=== PATIENT | female | born 1960 | race Two or more races ===

== ENCOUNTER 2023-09-06 21:08 | Emergency (ER) | payer OTHER ==
[~2023-09-06] VITALS: Ht 160 cm; Wt 71.7 kg
[2023-09-06 21:43] LABS: Basophils # (auto) 0.1 10 ^3/uL (0-0.2); Basophils % (auto) 0.9 % (0.0-2.0); Eosinophils # (auto) 0.2 10 ^3/uL (0-0.8); Hematocrit 45.1 % (36.0-46.0); Hemoglobin 15.2 g/dL (12.2-16.2); Lymphocytes # (auto) 3.3 10 ^3/uL (0.4-5.4); Lymphocytes % (auto) 39.9 % (10.0-50.0); Mean Corpuscular Hemoglobin 31.8 pg (28.0-32.0); Mean Corpuscular Hgb Conc. 33.8 g/dL (32.0-36.0); Mean Corpuscular Volume 94.2 fL (80.0-100.0); Monocytes # (auto) 0.9 10 ^3/uL (0-1.3); Monocytes % (auto) 10.8 % (0.0-12.0); Neutrophils # (auto) 3.8 10 ^3/uL (1.6-8.6); Neutrophils % (auto) 46.4 % (37.0-80.0); Red Blood Cells 4.79 10^6/uL (4.0-5.20); Red Cell Distribution Width 13.1 % (11.8-14.3); White Blood Cell 8.2 10^3/uL (4.4-10.8)
[2023-09-06 22:01] LABS: Alanine Aminotransferase 42 U/L (7-40); Albumin 4.8 g/dL (3.2-4.8); Alkaline Phosphatase 146 U/L (46-116); Anion Gap 7 (5-15); Aspartate Aminotransferase 30 U/L (13-40); BUN/Creatinine Ratio 13.6 (10.0-20.0); Blood Urea Nitrogen 12 mg/dL (9-23); Calcium 9.7 mg/dL (8.7-10.4); Carbon Dioxide 29 mmol/L (20-30); Chloride 106 mmol/L (98-107); Glucose 189 mg/dL (74-106); Magnesium 2.4 mg/dL (1.6-2.6); Potassium 3.7 mmol/L (3.5-5.1); Sodium 142 mmol/L (136-145)
[2023-09-06 22:02] LABS: Bilirubin, Total 0.7 mg/dL (0.2-1.0); Total Protein 7.8 g/dL (5.7-8.2)
[2023-09-06 22:09] LABS: INR 0.98 (0.9-1.15); Partial Thromboplastin Time 29.7 SEC (24.5-34.5); Prothrombin Time 10.3 sec (9.3-11.8)
[2023-09-07] MEDS ORDERED: ACETAMINOPHEN 325 MG TAB PO ONE (05:15)
[2023-09-07] MEDS ORDERED: LORazepam 0.5 MG TAB PO ONE (05:15)
[2023-09-07] MEDS ORDERED: IBUPROFEN 600 MG TAB PO ONE (05:15)
[2023-09-07 05:34] VITALS: BP 124/82; PULSE 77; RESP 18; TEMP 97.7; O2SAT 95
== END 2023-09-07 05:39 | disposition home or self-care (01) ==
LOC: ER 21:08 → EDBD 21:08 → ER 09-07 05:39
DX: R07.9 Chest pain, unspecified (principal); G43.909 Migraine, unspecified, not intractable, without status migrainosus; R42 Dizziness and giddiness; I10 Essential (primary) hypertension; Z90.49 Acquired absence of other specified parts of digestive tract
CPT/HCPCS: 36415; 70450; 71045; 80053; 83735; 83880; 84484; 85025; 85610; 85730; 93005

== ENCOUNTER 2025-07-23 07:22 | Inpatient (IN) | payer OTHER ==
[~2025-07-23] VITALS: Ht 162.6 cm; Wt 69.5 kg
--- NOTE | 2025-07-23 07:35 | ED.PDOC ---
HPI Comments 65-year-old female presents here in SVT. Patient states she woke up this morning with the palpitations 30 minutes prior to arrival. She has a history of something similar in the past but states this is worse. Reports substernal chest pain that is sharp. Denies any recent illness. No recent cough cold runny nose fever or chills. History limited given patient's critical condition Chief Complaint: Chest Pain Time Seen by MD: 07:42 Reviewed Notes: Medications, Allergies Allergies: Coded Allergies: NO KNOWN ALLERGIES (Unverified , 09/06/23) Information Source: Patient Mode of Arrival: Ambulatory Severity: Moderate Duration: Since onset Location: Substernal Radiation: No Radiation Quality: Pressure Onset: At Rest, With Light Exertion, With Heavy Exertion Associated Signs and Symptoms: Palpitations Past Medical History PAST MEDICAL HISTORY: DM, HTN Surgical History: Denies all surgeries STRAIGHTENER HAND History: No Pertinent STRAIGHTENER HAND History Family History Family History: Unknown Social History Smoker: Non-Smoker Alcohol: Occasionally Drugs: Denies Drug Use Lives In: Home Constitutional: denies: chills, diaphoresis, fatigue, fever, malaise, sweats, weakness, others EENTM: denies: blurred vision, double vision, ear bleeding, ear discharge, ear drainage, ear pain, ear ringing, eye pain, eye redness, hearing loss, mouth eliezer n, mouth swelling, nasal discharge, nose bleeding, nose congestion, nose pain, photophobia, tearing, throat pain, throat swelling, voice changes, others Respiratory: denies: cough, hemoptysis, orthopnea, SOB at rest, shortness of breath, SOB with excertion, stridor, wheezing, others Cardiovascular: reports: chest pain, palpitations; denies: dizzy spells, diaphoresis, Dyspnea on exertion, edema, irregular heart beat, left arm pain, lightheadedness, PND, syncope, others Gastrointestinal: denies: abdomen distended, abdominal pain, blood streaked bowels, constipated, diarrhea, dysphagia, difficulty swallowing, hematemesis, melena, nausea, poor appetite, poor fluid intake, rectal bleeding, rectal pain, vomiting, others Genitourinary: denies: abnormal vagina bleeding, burning, dyspareunia, dysuria, flank pain, frequency, hematuria, incontinence, pain, , vagina discharge, urgency, others Neurological: denies: dizziness, fainting, headache, left sided numbness, left sided weakness, numbness, paresthesia, pre-existing deficit, right sided numbness, right sided weakness, seizure, speech problems, tingling, tremors, weakness, others Musculoskeletal: denies: back pain, gout, joint pain, joint swelling, muscle pain, muscle stiffness, neck pain, others Integumetry: denies: bruises, change in color, change in hair/nails, dryness, laceration, lesions, lumps, rash, wounds, others Allergic/Immunocompromised: denies: Difficulty Healing, Frequent Infections, Hives, Itching, others Hematologic/Lymphatic: denies: anemia, blood clots, easy bleeding, easy bruising, swollen glands, others Endocrine: denies: excessive hunger, excessive sweating, excessive thirst, excessive urination, flushing, intolerance to cold, intolerance to heat, unexplained weight gain, unexplained weight loss, others Psychiatric: reports: anxiety; denies: bipolar disorder, depression, hopeless, panic disorder, schizophrenia, sleepless, suicidal, others All Other Systems: Reviewed and Negative Physical Exam Exam Comments Appears uncomfortable, short of breath General Appearance: Moderate Distress HEENT: Normal ENT Inspection, Pharynx Normal, TMs Normal Neck: Full Range of Motion, Non-Tender, Normal, Normal Inspection Respiratory: Chest Non-Tender, Lungs Clear, No Accessory Muscle Use, No Respiratory Distress, Normal Breath Sounds Cardiovascular: Tachycardia Breast Exam: Deferred Gastrointestinal: No Organomegaly, Non Tender, No Pulsatile Mass, Normal Bowel Sounds, Soft Genitalia: Deferred Pelvic: Deferred Rectal: Deferred Extremities: No calf tenderness, Normal capillary refill, Normal inspection, Normal range of motion, Non-tender, No pedal edema Musculoskeletal : Apperance: Normal Neurologic: Alert, No Motor Deficits, Normal Affect, Normal Mood, No Sensory Deficits Cerebellar Function: Normal Reflexes: Normal Skin: Dry, Normal Color, Warm Lymphatic: No Adenopathy EKG EKG #1: Pulse Rate (adult): 207 [place]: Normal Cardiac Rhythm: PSVT Comments ST Depression, Anterior Infarct, Old EKG #2: Comments Rate of 104 sinus tachycardia no significant ST changes EKG #3: Comments EKG 3. At 10:24 a.m. demonstrates sinus rhythm with a rate of [address] changes Was a procedure done? Was a procedure done?: No Cardioversion Vagal maneuver: Were attempted Attempts: x1 Resulted Rhythm: NSR Direct Supervision: Yes Informed consent obtained: Yes Risks/benefits/alt described: Yes Notes Patient given adenosine 6 mg IV with immediate conversion to sinus tachycardia rate of 123. CP Differential Dx Differential Diagnosis: Angina, Anxiety / Panic Attack, Hyperventilation, PSVT, Pulmonary Embolus, Sinus Tachycardia Differential Diagnosis: CHF, HTN Essential, HTN Accelerated Differential Diagnosis: Angina, Aortic dissection, Chest Wall Pain X-Ray, Labs, Meds, VS Vital Signs Date Time Temp Pulse Resp B/P (MAP) Pulse Ox O2 Delivery O2 Flow Rate FiO2 07/23/25 10:27 84 07/23/25 09:33 98.4 88 12 124/83 (97) 96 98.4 07/23/25 08:05 Room Air* 0 21 07/23/25 08:00 92 18 124/72 (89) 99 07/23/25 07:55 104 07/23/25 07:45 98.0 199 45 144/35 (71) 99 98.0 07/23/25 07:44 207 07/23/25 07:38 98.3 208 19 144/35 99 98.3 07/23/25 07:27 207 Lab Test 07/23/25 10:35 07/23/25 09:06 07/23/25 07:23 Range/Units Troponin I High Sensitivity Pending 37 *H 4 </=34 ng/L White Blood Count 10.7 4.4-10.8 10^3/uL Red Blood Count 4.89 4.0-5.20 10^6/uL Hemoglobin 15.6 12.2-16.2 g/dL Hematocrit 45.9 36.0-46.0 % Mean Corpuscular Volume 93.8 80.0-100.0 fL Mean Corpuscular Hemoglobin 31.8 28.0-32.0 pg Mean Corpuscular Hemoglobin Concent 33.9 32.0-36.0 g/dL Red Cell Distribution Width 13.5 11.8-14.3 % Platelet Count 465 H 140-450 10^3/uL Mean Platelet Volume 8.7 6.9-10.8 fL Neutrophils (%) (Auto) 39.1 37.0-80.0 % Lymphocytes (%) (Auto) 47.5 10.0-50.0 % Monocytes (%) (Auto) 9.1 0.0-12.0 % Eosinophils (%) (Auto) 3.5 0.0-7.0 % Basophils (%) (Auto) 0.8 0.0-2.0 % Neutrophils # (Auto) 4.2 1.6-8.6 10 ^3/uL Lymphocytes # (Auto) 5.1 0.4-5.4 10 ^3/uL Monocytes # (Auto) 1.0 0-1.3 10 ^3/uL Eosinophils # (Auto) 0.4 0-0.8 10 ^3/uL Basophils # (Auto) 0.1 0-0.2 10 ^3/uL Nucleated Red Blood Cells 0.2 % Sodium Level 141 136-145 mmol/L Potassium Level 4.7 3.5-5.1 mmol/L Chloride Level 103 98-107 mmol/L Carbon Dioxide Level 22 20-31 mmol/L Anion Gap 16 H 5-15 Blood Urea Nitrogen 14 9-23 mg/dL Creatinine 0.85 0.550-1.02 mg/dL Glomerular Filtration Rate Calc 76 >90 mL/min BUN/Creatinine Ratio 16.5 10.0-20.0 Serum Glucose 241 H 74-106 mg/dL Calcium Level 9.8 8.7-10.4 mg/dL Beta-Hydroxybutyric Acid 0.518 H < 0.4 mmol/L Current Medications Medications (Trade) Dose Ordered Sig/Mikie Route Start Time Stop Time Status Last Admin Adenosine (Adenosine) 6 mg ONCE ONCE IV 07/23/25 07:45 07/23/25 07:46 DC 07/23/25 07:56 Sodium Chloride 1,000 ml @ 1,000 mls/hr Q1H ONCE IV 07/23/25 09:00 07/23/25 09:59 DC 07/23/25 09:[address] [address] Ph: [phone] DIAGNOSTIC IMAGING Diagnostic Imaging Report : [id number] Signed PATIENT: VIVIAN SAGASTUMEACCT: [id number] UNIT: [id number] : 1960 LOC: ER ROOM / BED: / AGE / SEX: 65 / F ADM STATUS: REG ER SERVICE ORDERING PHYSICIAN: RAKAN CHRISTIANSON MD PROCEDURE(s): CXRP - CHEST PORTABLE REASON: Chest pain ORDER NUMBER(s): [id number], ACCESSION NUMBER(s): [id number] CHEST RADIOGRAPH Indication: Chest pain Technique: Single frontal view of the chest was obtained COMPARISON: XY CHEST PORTABLE on DOS: 09/06/23 FINDINGS: Lines and Tubes: None Lungs: Clear Pleura: No effusion. No pneumothorax. Cardiomediastinal contours: Unremarkable Bones: Unremarkable IMPRESSION: No acute disease. 65-year-old female walk-in from waiting room presents here and SVT. She presents here with chest pain and was found to have a heart rate of 207. I was asked to see the patient immediately by nursing staff. At this time patient is short of breath and having acute chest pain in an SVT. I have ordered adenosine 6 mg IV push. CBC, BMP troponin EKG and chest x-ray has been ordered. Patient was given adenosine 6 mg IV push under my direct supervision. Patient successfully converted to sinus tachycardia. At this time CBC is within normal limits.. BMP demonstrates elevated blood sugar in the mid 200s, and I have anion gap of 16. Beta hydroxybutyrate has returned elevated also. Chest x-ray with no evidence of acute pathology. At this time I am concerned about acute DKA. I have written for IV fluids here in the ER. However believe patient would benefit from inpatient admission. Hospitalist team has been contacted. Images Reviewed?: Images reviewed and evaluated by me Time of 1ST Reevaluation: 08:28 Reevaluation 1ST: Unchanged Patient Education/Counseling: Diagnosis, Treatment Family Education/Counseling: No Family Present SEPSIS Sepsis Screen Physician Orders Troponin-I Hs (07/23/25 10:43) Chest Portable (07/23/25 07:47) Urinalysis (07/23/25 08:48) Electrocardigram (07/23/25 09:42) Electrocardigram (07/23/25 10:42) Electrocardigram (07/23/25 12:42) Vital Signs Date Time Temp Pulse Resp B/P (MAP) Pulse Ox O2 Delivery O2 Flow Rate FiO2 07/23/25 10:27 84 07/23/25 09:33 98.4 88 12 124/83 (97) 96 98.4 07/23/25 08:05 Room Air* 0 21 07/23/25 08:00 92 18 124/72 (89) 99 07/23/25 07:55 104 07/23/25 07:45 98.0 199 45 144/35 (71) 99 98.0 07/23/25 07:44 207 07/23/25 07:38 98.3 208 19 144/35 99 98.3 07/23/25 07:27 207 Laboratory Tests Test 07/23/25 07:23 White Blood Count 10.7 10^3/uL (4.4-10.8) Medications Medications Dose Ordered Sig/Mikie Route Start Time Stop Time Status Last Admin Dose Admin Adenosine 6 mg ONCE ONCE IV 07/23/25 07:45 07/23/25 07:46 DC 07/23/25 07:56 Sodium Chloride 1,000 ml @ 1,000 mls/hr Q1H ONCE IV 07/23/25 09:00 07/23/25 09:59 DC 07/23/25 09:19 Departure 1 Departure Time of Disposition: 10:58 Impression: Primary Impression: SVT (supraventricular tachycardia) Additional Impression: DKA (diabetic ketoacidosis) Qualified Codes: E13.10 - Other specified diabetes mellitus with k etoacidosis without coma Disposition: ADMITTED INPATIENT Condition: Serious Critical Care Note Critical Care Time?: Yes (55 min-critical care time only) Critical care comment: Time spent evaluating the patient, I was called to bedside immediately given her high heart rate. Managing patient's care. Multiple re-evaluations of the patient, evaluating blood work, starting fluids , managing DKA. Time excludes time spent for procedures Stability Stability form required: No Heart Score Heart Score: Heart Score Response (Comments) Value History Moderate Suspicious [address]-Deviation 2 Age 45-64 1 Risk Factors 1 or 2 risk factors 1 Troponin 1-2 x's Normal limit 1 Total 6 I personally scribed for RAKAN CHRISTIANSON MD ([email or web address]) on 07/23/25 at 07:35. Electronically submitted by Danica Hawkins ([email or web address]). I personally scribed for RAKAN CHRISTIANSON MD ([email or web address]) on 07/23/25 at 07:36. Electronically submitted by Danica Hawkins ([email or web address]). I personally scribed for RAKAN CHRISTIANSON MD ([facility]) on 07/23/25 at 07:44. Electronically submitted by Danica Hawkins ([email or web address]). I personally scribed for RAKAN CHRISTIANSON MD ([facility]) on 07/23/25 at 07:50. Electronically submitted by Danica Hawkins ([email or web address]). I personally scribed for RAKAN CHRISTIANSON MD ([facility]) on 07/23/25 at 08:33. Electronically submitted by Danica Hawkins ([email or web address]). I personally scribed for RAKAN CHRISTIANSON MD ([facility]) on 07/23/25 at 08:40. Electronically submitted by Danica Hawkins ([email or web address]). RAKAN CHRISTIANSON MD Jul 23, 2025 07:35
[2025-07-23] MEDS: ADENOSINE 6 MG/2 ML INJ IV ONE ×3 (07:56→08:07)
[2025-07-23 08:05] LABS: Hematocrit 45.9 % (36.0-46.0); Hemoglobin 15.6 g/dL (12.2-16.2); Mean Corpuscular Hemoglobin 31.8 pg (28.0-32.0); Mean Corpuscular Volume 93.8 fL (80.0-100.0); Nucleated Red Blood Cells % 0.2 %
[2025-07-23 08:16] LABS: Chloride 103 mmol/L (98-107); Potassium 4.7 mmol/L (3.5-5.1); Sodium 141 mmol/L (136-145)
[2025-07-23 08:17] LABS: Anion Gap 16 (5-15); Calcium 9.8 mg/dL (8.7-10.4); Carbon Dioxide 22 mmol/L (20-31)
[2025-07-23 08:22] LABS: BUN/Creatinine Ratio 16.5 (10.0-20.0); Blood Urea Nitrogen 14 mg/dL (9-23)
[2025-07-23 08:24] LABS: Glucose 241 mg/dL (74-106)
--- NOTE | 2025-07-23 08:25 | DVH ---
CHEST RADIOGRAPH Indication: Chest pain Technique: Single frontal view of the chest was obtained COMPARISON: XY CHEST PORTABLE on DOS: 09/06/23 FINDINGS: Lines and Tubes: None Lungs: Clear Pleura: No effusion. No pneumothorax. Cardiomediastinal contours: Unremarkable Bones: Unremarkable IMPRESSION: No acute disease.
[2025-07-23] MEDS: SODIUM CHLORIDE 0.9% 1,000 ML IV ONE ×2 (09:19→11:15)
--- NOTE | 2025-07-23 11:32 | ECG ---
[facility] Test Date: 2025-07-23 Test Time: 10:24:52 Pat Name: VIVIAN OTT Department: [facility] ED Patient ID: [facility]-[id number] Room: 0279T Gender: F Pricing Coordinator: ALEJANDRO : 1960 Requested By: RAKAN CHRISTIANSON Order Number: [id number] Reading MD: Moshe Perez Measurements Intervals [place] Rate: 84 P: 31 WI: 170 QRS: -11 QRSD: 86 T: 45 QT: 383 QTc: 453 Interpretive Statements Sinus rhythm Low voltage, precordial leads Minimal ST elevation, inferior leads Electronically Signed On 07-23-2025 20:42:54 PDT by Moshe Perez Please click the below link to view image of tracing.
[2025-07-23 11:43] LABS: Urine Protein, UAD Negative (Negative)
[2025-07-23] MEDS ORDERED: NITROGLYCERIN 0.4 MG SL TAB SL PRN ×2 (12:30)
[2025-07-23] MEDS ORDERED: ACETAMINOPHEN 325 MG TAB PO PRN (12:30)
[2025-07-23] MEDS ORDERED: ONDANSETRON HCL 4 MG/2 ML VIAL IV PRN (12:30)
[2025-07-23] MEDS ORDERED: MORPHINE SULFATE 4 MG/ML SYR/VIAL IV PRN (12:30)
[2025-07-23] MEDS ORDERED: MORPHINE SULFATE INJ 2 MG/ml SYRG IV PRN (12:30)
[2025-07-23] MEDS ORDERED: DEXTROSE (50%) 50ML SYRG IV PRN (12:30)
--- NOTE | 2025-07-23 12:32 | DVHHP2 ---
History of Present Illness Reason for Visit: Palpitations with chest pain History of Present Illness Lida Kaufman is a 65-year-old female with past medical history of hysterectomy, diabetes and hypertension who presents to the ED with palpitations that started this morning while she was in bed. Patient states that it has happened in the past. She reports that lying down makes the palpitations better. Patient reports that she lives at home with her family. She also states that she drinks alcohol occasionally. Patient denies any recent trauma or injury, recent sick contacts, recent travels, recent ingestion of spoiled food, shortness of breath, fever, chills, lightheadedness, weakness, dizziness, abdominal pain, nausea, vomiting, diarrhea, or urinary symptoms. Cardiovascular: HTN Endocrine: Diabetes Past Surgical History: Hysterectomy Family History: Other (Dad with heart disease) Smoke: No ALCOHOL: none Drugs: None Lives: with Family Domestic Violence: Neg Review of Systems Cardiovascular: Chest Pain, Palpitations Allergies: Coded Allergies: NO KNOWN ALLERGIES (Unverified , 09/06/23) Exam Vital Signs Vital Signs Date Time Temp Pulse Resp B/P (MAP) Pulse Ox O2 Delivery O2 Flow Rate FiO2 07/23/25 11:30 98.0 79 12 125/79 (94) 97 98.0 07/23/25 08:05 Room Air* 0 21 General Appearance: Alert, Oriented X3, Cooperative, No acute distress HEENT: Atraumatic, PERRLA, EOMI, Mucous membr. moist/pink Respiratory: Clear to auscultation, Normal air movement Cardiovascular: Normal S1, Normal S2 Abdominal: Normal bowel sounds, Soft Extremities: No edema, Normal pulses Neuro: Normal gait, Normal speech, Strength at 5/5 X4 ext, Normal tone, Sensation intact Psych/Mental Status: Mental status NL, Mood NL Labs/Xrays Labs Test 07/23/25 11:08 07/23/25 10:35 07/23/25 07:23 Range/Units Urine Color Colorless Yellow Urine Clarity Clear Clear Urine pH 7.5 5.0-9.0 Urine Specific [place] 1.005 1.001-1.035 Urine Protein Negative Negative Urine Ketones Trace Negative Urine Blood Negative Negative /uL Urine Nitrite Negative Negative Urine Bilirubin Negative Negative Urine Urobilinogen Normal Negative mg/dL Urine Leukocyte Esterase Negative Negative /uL Urine RBC 1 0 - 4 /hpf Urine Microscopic WBC 1 0-5 /HPF Urine Squamous Epithelial Cells Few <5 /hpf Urine Bacteria Few H None Seen /hpf Urine Glucose Normal Normal mg/dL Troponin I High Sensitivity 89 *H </=34 ng/L White Blood Count 10.7 4.4-10.8 10^3/uL Red Blood Count 4.89 4.0-5.20 10^6/uL Hemoglobin 15.6 12.2-16.2 g/dL Hematocrit 45.9 36.0-46.0 % Mean Corpuscular Volume 93.8 80.0-100.0 fL Mean Corpuscular Hemoglobin 31.8 28.0-32.0 pg Mean Corpuscular Hemoglobin Concent 33.9 32.0-36.0 g/dL Red Cell Distribution Width 13.5 11.8-14.3 % Platelet Count 465 H 140-450 10^3/uL Mean Platelet Volume 8.7 6.9-10.8 fL Neutrophils (%) (Auto) 39.1 37.0-80.0 % Lymphocytes (%) (Auto) 47.5 10.0-50.0 % Monocytes (%) (Auto) 9.1 0.0-12.0 % Eosinophils (%) (Auto) 3.5 0.0-7.0 % Basophils (%) (Auto) 0.8 0.0-2.0 % Neutrophils # (Auto) 4.2 1.6-8.6 10 ^3/uL Lymphocytes # (Auto) 5.1 0.4-5.4 10 ^3/uL Monocytes # (Auto) 1.0 0-1.3 10 ^3/uL Eosinophils # (Auto) 0.4 0-0.8 10 ^3/uL Basophils # (Auto) 0.1 0-0.2 10 ^3/uL Nucleated Red Blood Cells 0.2 % Sodium Level 141 136-145 mmol/L Potassium Level 4.7 3.5-5.1 mmol/L Chloride Level 103 98-107 mmol/L Carbon Dioxide Level 22 20-31 mmol/L Anion Gap 16 H 5-15 Blood Urea Nitrogen 14 9-23 mg/dL Creatinine 0.85 0.550-1.02 mg/dL Glomerular Filtration Rate Calc 76 >90 mL/min BUN/Creatinine Ratio 16.5 10.0-20.0 Serum Glucose 241 H 74-106 mg/dL Calcium Level 9.8 8.7-10.4 mg/dL Beta-Hydroxybutyric Acid 0.518 H < 0.4 mmol/L CHEST RADIOGRAPH Indication: Chest pain Technique: Single frontal view of the chest was obtained COMPARISON: XY CHEST PORTABLE on DOS: 09/06/23 FINDINGS: Lines and Tubes: None Lungs: Clear Pleura: No effusion. No pneumothorax. Cardiomediastinal contours: Unremarkable Bones: Unremarkable IMPRESSION: No acute disease. SEPSIS Sepsis Screen Date sepsis recognized/suspect: Jul 23, 2025 Time Sepsis recognized/suspect: 737 Recent Procedure: No On Antibiotic Therapy: No Respiratory Rate >20: No Heart Rate >90: Yes Temp<36 C (96.8 F) or >38.3 C: No SBP <90 or MAP <65 mmHG: No New Acute Mental Status Change: No Is the patient on CPAP, BIPAP,: No Physician Orders Chest Portable (07/23/25 07:47) Electrocardigram (07/23/25 10:42) Electrocardigram (07/23/25 12:42) Vital Signs Date Time Temp Pulse Resp B/P (MAP) Pulse Ox O2 Delivery O2 Flow Rate FiO2 07/23/25 11:30 98.0 79 12 125/79 (94) 97 98.0 07/23/25 10:27 84 07/23/25 09:33 98.4 88 12 124/83 (97) 96 98.4 07/23/25 08:05 Room Air* 0 21 07/23/25 08:00 92 18 124/72 (89) 99 07/23/25 07:55 104 07/23/25 07:45 98.0 199 45 144/35 (71) 99 98.0 07/23/25 07:44 207 07/23/25 07:38 98.3 208 19 144/35 99 98.3 07/23/25 07:27 207 Laboratory Tests Test 07/23/25 07:23 White Blood Count 10.7 10^3/uL (4.4-10.8) Medications Medications Dose Ordered Sig/Mikie Route Start Time Stop Time Status Last Admin Dose Admin Adenosine 6 mg ONCE ONCE IV 07/23/25 07:45 07/23/25 07:46 DC 07/23/25 07:56 6 MG Sodium Chloride 1,000 ml @ 1,000 mls/hr Q1H ONCE IV 07/23/25 09:00 07/23/25 09:59 DC 07/23/25 09:19 1,000 MLS/HR Sodium Chloride 1,000 ml @ 1,000 mls/hr Q1H ONCE IV 07/23/25 11:00 07/23/25 11:59 DC 07/23/25 11:15 1,000 MLS/HR Assessment/Plan Assessment/Plan Assessment NSTEMI likely type 2 Palpitations SVTs History of diabetes History of hypertension Plan Admit to tele Trend troponins Antiemetics Pain management Aspirin + statin Hemoglobin A1c ISS and Accu-Cheks Adenosine given in ED NS 2 L given ED Beta hydroxy UA Chest x-ray Echo ordered ACS workup Diet Home medications reconciled DVT prophylaxis-SCDs PUD prophylaxis-not indicated no history of GERD or GI bleed Discussed plan of care with patient and nurse Cardiology consulted [id number] Preventive counseling healthy eating habits, physical activity, and regular checkups Plan discussed with: Patient Date of Service: Jul 23, 2025 Billing Provider: MIKE BERTRAND Common Visit Codes: [id number]-[id number] INP/OBS CARE (HIGH) Secondary Visit Codes: [id number] COUNSELING IND MIKE BERTRAND Jul 23, 2025 12:32
[2025-07-23 13:26] LABS: Amphetamine Screen, Urine Neg (NEGATIVE); Barbiturate Scree,Urine Neg (NEGATIVE); Benzodiazephine Screen, Urine Neg (NEGATIVE); Cannabinoid Screen, Urine Neg (NEGATIVE); Cocaine Screen, Urine Neg (NEGATIVE); Opiate Scree,Urine Neg (NEGATIVE); Phencyclidine Screen, Urine Neg (NEGATIVE)
--- NOTE | 2025-07-23 15:28 | ECG ---
[facility] Test Date: 2025-07-23 Test Time: 07:52:05 Pat Name: VIVIAN OTT Department: [facility] ED Room: 0279T Gender: F Plant Wrapper: ALEJANDRO : 1960 Requested By: RAKAN CHRISTIANSON Order Number: [id number] Reading MD: Moshe Perez Measurements Intervals [place] Rate: 104 P: 42 WI: 160 QRS: -28 QRSD: 87 T: 37 QT: 349 QTc: 459 Interpretive Statements Sinus tachycardia Probable left atrial enlargement Borderline left axis deviation Electronically Signed On 07-23-2025 20:41:36 PDT by Moshe Perez Please click the below link to view image of tracing.
[2025-07-23] MEDS: ACCU-CHEK COMFORT CURVE STRIP VI SCH (17:35)
[2025-07-23] MEDS: InsuLIN REG 1unit/0.01ml Soln (100units/ml) SC SCH (17:35)
[2025-07-23 18:56] VITALS: BP 149/86; PULSE 74; RESP 18; TEMP 98.3; O2SAT 97
[2025-07-23 19:30] VITALS: BP 149/86; PULSE 74; RESP 18; TEMP 98.3; O2SAT 97
[2025-07-23] MEDS ORDERED: METF-370 PO (19:36)
[2025-07-23 20:00] VITALS: PULSE 88
[2025-07-23 21:00] VITALS: BP 134/83; PULSE 67; RESP 20; TEMP 97.6; O2SAT 97
[2025-07-23] MEDS: ATORVASTATIN 20 MG TAB PO SCH (22:10)
[2025-07-24] VITALS (7 sets, daily range): BP systolic 121–129; BP diastolic 74–83; PULSE 60–92; RESP 16–18; TEMP 97.7–99.2; O2SAT 93–97
[2025-07-24 06:27] LABS: Hematocrit 39.2 % (36.0-46.0); Hemoglobin 13.4 g/dL (12.2-16.2); Mean Corpuscular Hemoglobin 32.0 pg (28.0-32.0); Mean Corpuscular Volume 93.4 fL (80.0-100.0); Nucleated Red Blood Cells % 0.2 %
[2025-07-24 06:40] LABS: Anion Gap 11 (5-15); Carbon Dioxide 25 mmol/L (20-31); Chloride 106 mmol/L (98-107); Potassium 3.8 mmol/L (3.5-5.1); Sodium 142 mmol/L (136-145)
[2025-07-24 06:41] LABS: Calcium 9.0 mg/dL (8.7-10.4)
[2025-07-24 06:46] LABS: BUN/Creatinine Ratio 18.5 (10.0-20.0); Blood Urea Nitrogen 12 mg/dL (9-23); Glucose 104 mg/dL (74-106)
[2025-07-24 06:47] LABS: Magnesium 2.1 mg/dL (1.6-2.6)
[2025-07-24 06:48] LABS: Cholesterol 164 mg/dL (< 200); HDL Cholesterol 54 mg/dL (40-59)
[2025-07-24 06:50] LABS: Triglycerides 161 mg/dL (< 150)
--- NOTE | 2025-07-24 13:02 | DVHPN2 ---
Subjective The patient is seen and examined at bedside. Complain of chest discomfort. Reviewed: Care Plan, H&P, Labs, Medications, Previous Orders, Radiology Changes from previous H/P or p: No Changes Cardiovascular: Chest Pain, Palpitations Objective Vitals Vital Signs Date Time Temp Pulse Resp B/P (MAP) Pulse Ox O2 Delivery O2 Flow Rate FiO2 07/24/25 08:40 98.0 60 16 126/76 (93) 96 98.0 07/24/25 08:05 Room Air* 0 21 Intake/Output Intake and Output 07/24/25 07:00 Intake Total 2100 ml Output Total 2 ml Balance 2098 ml Intake Oral 100 ml IV Total 2000 ml Output Urine Total 2 ml General Appearance: Alert, Oriented X3, Cooperative, No acute distress HEENT: Atraumatic, PERRLA, EOMI, Mucous membr. moist/pink Neck: Supple Lungs: Clear to auscultation, Normal air movement Cardiovascular: Regular rate, Normal S1, Normal S2, No murmurs, Gallops, Rubs Abdomen: Normal bowel sounds, Soft, No tenderness Neuro: Cranial nerves 3-12 NL Psych/Mental Status: Mental status NL Medications Current Medications Medications Dose Ordered Sig/Mikie Route Start Time Stop Time Status Last Admin Dose Admin Diagnostic Test (Pha) 1 strip ACHS 07/23/25 17:00 07/24/25 11:17 1 STRIP Insulin Human Regular ACHS SC 07/23/25 17:00 07/24/25 11:46 2 UNITS Dextrose 50 ml UD PRN IV 07/23/25 12:30 Aspirin 81 mg DAILY PO 07/24/25 10:00 07/24/25 09:34 81 MG Atorvastatin Calcium 40 mg HS PO 07/23/25 22:00 07/23/25 22:10 40 MG Acetaminophen 650 mg Q6HP PRN PO 07/23/25 12:30 Nitroglycerin 0.4 mg Q5MINP PRN SL 07/23/25 12:30 Ondansetron HCl 4 mg Q4HP PRN IV 07/23/25 12:30 Morphine Sulfate 2 mg Q30M PRN IV 07/23/25 12:30 Laboratory Results Laboratory Tests 07/24/25 05:07 Chemistry Test 07/24/25 05:07 Calcium Level 9.0 mg/dL (8.7-10.4) Magnesium Level 2.1 mg/dL (1.6-2.6) Lipid panel Test 07/24/25 05:07 Cholesterol Level 164 mg/dL (< 200) HDL Cholesterol 54 mg/dL (40-59) Triglycerides Level 161 mg/dL (< 150) H Urinalysis Test 07/23/25 11:08 Urine Color Colorless (Yellow) Urine Clarity Clear (Clear) Urine pH 7.5 (5.0-9.0) Urine Specific [place] 1.005 (1.001-1.035) Urine Protein Negative (Negative) Urine Ketones Trace (Negative) Urine Blood Negative /uL (Negative) Urine Nitrite Negative (Negative) Urine Bilirubin Negative (Negative) Urine Urobilinogen Normal mg/dL (Negative) Urine Leukocyte Esterase Negative /uL (Negative) Urine RBC 1 /hpf (0 - 4) Urine Microscopic WBC 1 /HPF (0-5) Urine Squamous Epithelial Cells Few /hpf (<5) Urine Bacteria Few /hpf (None Seen) H Urine Glucose Normal mg/dL (Normal) Labs and/or images reviewed: Labs reviewed by me Assessment/Plan Assessment/Plan NSTEMI likely type 2 Palpitations SVTs History of diabetes History of hypertension Plan Continuing current management Continuing with aspirin and statin Continuing with Zofran PRN Continuing with oxygen Continuing with home medication Waiting for orthodontic assistant to see the patient We will wait for hemoglobin A1c This medical document was created using an electronic medical record system with [employer] direct computerized dictation system. Although this document has been carefully reviewed, there may still be some phonetic and typographical errors. These areas are purely typographical due to imperfections of the software programs, and do not reflect any compromise in the patient's medical care. Plan discussed with: Patient Date of Service: Jul 24, 2025 Billing Provider: VINNY LOPEZ MD Common Visit Codes: [id number] INP/OBS CARE(HIGH) VINNY LOPEZ MD Jul 24, 2025 13:02
--- NOTE | 2025-07-24 20:23 | DVHSR ---
APPROVED REPORT EXAM: Two-dimensional and M-mode echocardiogram with Doppler and color Doppler. Blood Pressure: 125/79 mmHg INDICATION Chest Pain RISK FACTORS Height: 5'4", Weight: 154 DIMENSIONS LVDd3.9 (3.8-5.7cm)LA (2D)3.2 (1.9-4.0cm)Aortic Root3.5 (2.0-3.7cm) LVDs2.7 (2.5-4.0cm)LA (MM) (1.9-4.0cm)Aortic Cusp Exc1.5 (1.5-2.0cm) EF (%) 60.0 (55-70%)Rt. Atrium3.4 (1.9-4.0cm)Asc. Aorta cm IVSd1.0 (0.7-1.1cm)RV (D) (1.8-2.4cm) PWd1.0 (0.7-1.1cm) Mitral Valve MitralMitral Stenosis E wave0.63m/sMV Mean GR.mmHg A wave0.82m/sMV Peak GR.mmHg E/A ratio0.82D MVAcm2 DECEL [id number] 1/2 [place] Aortic Valve Aortic ValveAortic Stenosis V10.98m/Meagan Mean GR.4mmHg V21.26m/Meagan Peak GR.6mmHg LVOT Diameter1.9 (1.8-2.4cm)Doppler AVA2.20cm2 Pulmonic Valve V20.90m/s Conclusion NORMAL LV EF IS 70% SLIGHTLY DILATED RV AND RA NORMAL VALVES NO EFFUSION
[2025-07-25 01:00] VITALS: BP 118/74; PULSE 63; RESP 16; TEMP 98; O2SAT 97
[2025-07-25 05:00] VITALS: BP 115/61; PULSE 68; RESP 17; TEMP 98.2; O2SAT 98
[2025-07-25 08:00] VITALS: PULSE 61; PULSE 68; RESP 18; O2SAT 98
[2025-07-25 09:00] VITALS: BP 119/77; PULSE 66; RESP 19; TEMP 98; O2SAT 97
--- NOTE | 2025-07-25 12:17 | DVHPN2 ---
Subjective The patient is seen and examined at bedside. Complain of chest discomfort. Reviewed: Care Plan, H&P, Labs, Medications, Previous Orders, Radiology Cardiovascular: Chest Pain, Palpitations Objective Vitals Vital Signs Date Time Temp Pulse Resp B/P (MAP) Pulse Ox O2 Delivery O2 Flow Rate FiO2 07/25/25 08:00 61 07/25/25 08:00 18 98 Room Air* 0 21 07/25/25 05:00 98.2 115/61 (79) 98.2 Intake/Output Intake and Output 07/25/25 07:00 Intake Total 1240 ml Balance 1240 ml Intake Oral 1240 ml # Voids 6 General Appearance: Alert, Oriented X3, Cooperative, No acute distress HEENT: Atraumatic, PERRLA, EOMI, Mucous membr. moist/pink Neck: Supple Lungs: Clear to auscultation, Normal air movement Cardiovascular: Regular rate, Normal S1, Normal S2, No murmurs, Gallops, Rubs Abdomen: Normal bowel sounds, Soft, No tenderness Neuro: Cranial nerves 3-12 NL Psych/Mental Status: Mental status NL Medications Current Medications Medications Dose Ordered Sig/Mikie Route Start Time Stop Time Status Last Admin Dose Admin Diagnostic Test (Pha) 1 strip ACHS 07/23/25 17:00 07/25/25 11:42 1 STRIP Insulin Human Regular ACHS SC 07/23/25 17:00 07/24/25 22:03 2 UNITS Dextrose 50 ml UD PRN IV 07/23/25 12:30 Aspirin 81 mg DAILY PO 07/24/25 10:00 07/25/25 10:08 81 MG Atorvastatin Calcium 40 mg HS PO 07/23/25 22:00 07/24/25 22:02 40 MG Acetaminophen 650 mg Q6HP PRN PO 07/23/25 12:30 Nitroglycerin 0.4 mg Q5MINP PRN SL 07/23/25 12:30 Ondansetron HCl 4 mg Q4HP PRN IV 07/23/25 12:30 Morphine Sulfate 2 mg Q30M PRN IV 07/23/25 12:30 Laboratory Results Laboratory Tests 07/24/25 05:07 Urinalysis Test 07/23/25 11:08 Urine Color Colorless (Yellow) Urine Clarity Clear (Clear) Urine pH 7.5 (5.0-9.0) Urine Specific [place] 1.005 (1.001-1.035) Urine Protein Negative (Negative) Urine Ketones Trace (Negative) Urine Blood Negative /uL (Negative) Urine Nitrite Negative (Negative) Urine Bilirubin Negative (Negative) Urine Urobilinogen Normal mg/dL (Negative) Urine Leukocyte Esterase Negative /uL (Negative) Urine RBC 1 /hpf (0 - 4) Urine Microscopic WBC 1 /HPF (0-5) Urine Squamous Epithelial Cells Few /hpf (<5) Urine Bacteria Few /hpf (None Seen) H Urine Glucose Normal mg/dL (Normal) Assessment/Plan Assessment/Plan NSTEMI likely type 2 Palpitations SVTs History of diabetes History of hypertension Plan Continuing current management Continuing with aspirin and statin Continuing with Zofran PRN Continuing with oxygen Continuing with home medication Waiting for chief fundraising officer to see the patient We will wait for hemoglobin A1c This medical document was created using an electronic medical record system with [employer] direct computerized dictation system. Although this document has been carefully reviewed, there may still be some phonetic and typographical errors. These areas are purely typographical due to imperfections of the software programs, and do not reflect any compromise in the patient's medical care. VINNY LOPEZ MD Jul 25, 2025 12:16
[2025-07-25] MEDS ORDERED: ASPI-325 PO (12:49)
[2025-07-25] MEDS ORDERED: ATOR10TA PO (12:49)
--- NOTE | 2025-07-25 12:51 | DVHDS2 ---
Discharge Summary Date of Admission Jul 23, 2025 at 12:26 Date of Discharge: Jul 25, 2025 Admitting Diagnosis NSTEMI likely type 2 Palpitations SVTs History of diabetes History of hypertension Labs/Diagnostic Data: Laboratory Results Test 07/25/25 06:40 07/24/25 05:07 07/23/25 11:08 07/23/25 07:23 POC Glucose 118 mg/dl (70-106) White Blood Count 6.4 10^3/uL (4.4-10.8) Red Blood Count 4.19 10^6/uL (4.0-5.20) Hemoglobin 13.4 g/dL (12.2-16.2) Hematocrit 39.2 % (36.0-46.0) Mean Corpuscular Volume 93.4 fL (80.0-100.0) Mean Corpuscular Hemoglobin 32.0 pg (28.0-32.0) Mean Corpuscular Hemoglobin Concent 34.2 g/dL (32.0-36.0) Red Cell Distribution Width 13.5 % (11.8-14.3) Platelet Count 339 10^3/uL (140-450) Mean Platelet Volume 8.5 fL (6.9-10.8) Neutrophils (%) (Auto) 43.2 % (37.0-80.0) Lymphocytes (%) (Auto) 37.4 % (10.0-50.0) Monocytes (%) (Auto) 10.8 % (0.0-12.0) Eosinophils (%) (Auto) 7.7 % (0.0-7.0) Basophils (%) (Auto) 0.9 % (0.0-2.0) Neutrophils # (Auto) 2.8 10 ^3/uL (1.6-8.6) Lymphocytes # (Auto) 2.4 10 ^3/uL (0.4-5.4) Monocytes # (Auto) 0.7 10 ^3/uL (0-1.3) Eosinophils # (Auto) 0.5 10 ^3/uL (0-0.8) Basophils # (Auto) 0.1 10 ^3/uL (0-0.2) Nucleated Red Blood Cells 0.2 % Sodium Level 142 mmol/L (136-145) Potassium Level 3.8 mmol/L (3.5-5.1) Chloride Level 106 mmol/L (98-107) Carbon Dioxide Level 25 mmol/L (20-31) Anion Gap 11 (5-15) Blood Urea Nitrogen 12 mg/dL (9-23) Creatinine 0.65 mg/dL (0.550-1.02) Glomerular Filtration Rate Calc 98 mL/min (>90) BUN/Creatinine Ratio 18.5 (10.0-20.0) Serum Glucose 104 mg/dL (74-106) Calcium Level 9.0 mg/dL (8.7-10.4) Magnesium Level 2.1 mg/dL (1.6-2.6) Troponin I High Sensitivity 36 ng/L (</=34) Triglycerides Level 161 mg/dL (< 150) Cholesterol Level 164 mg/dL (< 200) LDL Cholesterol 84 mg/dL (< 100) HDL Cholesterol 54 mg/dL (40-59) Urine Color Colorless (Yellow) Urine Clarity Clear (Clear) Urine pH 7.5 (5.0-9.0) Urine Specific [place] 1.005 (1.001-1.035) Urine Protein Negative (Negative) Urine Ketones Trace (Negative) Urine Blood Negative /uL (Negative) Urine Nitrite Negative (Negative) Urine Bilirubin Negative (Negative) Urine Urobilinogen Normal mg/dL (Negative) Urine Leukocyte Esterase Negative /uL (Negative) Urine RBC 1 /hpf (0 - 4) Urine Microscopic WBC 1 /HPF (0-5) Urine Squamous Epithelial Cells Few /hpf (<5) Urine Bacteria Few /hpf (None Seen) Urine Glucose Normal mg/dL (Normal) Urine Opiates Screen Neg (NEGATIVE) Urine Fentanyl Screen Neg (NEGATIVE) Urine Barbiturates Screen Neg (NEGATIVE) Urine Phencyclidine Screen Neg (NEGATIVE) Urine Amphetamines Screen Neg (NEGATIVE) Urine Benzodiazepines Screen Neg (NEGATIVE) Urine Cocaine Screen Neg (NEGATIVE) Urine Cannabinoids Screen Neg (NEGATIVE) Hemoglobin A1c 6.2 % A1C (<5.7) Beta-Hydroxybutyric Acid 0.518 mmol/L (< 0.4) Thyroid Stimulating Hormone (TSH) 0.82 uIU/mL (0.55-4.78) Free Thyroxine (T4) Calculated 1.23 ng/dL (0.89-1.76) Other Laboratory Tests 07/24/25 05:07 Brief Hx & Hospital Course: This is a 65 years old female with past medical history hysterectomy, diabetes, hypertension come to emergency department with heart palpitation. The patient said this happened in the past but this time the palpitation is not getting better even when she lay down rest again. The patient decided to come to hospital for further evaluation. Patient stated that she drinks alcohol occasionally but did not drink before this happened. The patient was admitted. The patient was found to have SVT and adenosine was given three time. Her heart rate back to normal sinus rhythm. Her troponin level is mildly elevated. Cardiology was consulted. Echo showed normal EF at 70% with no ischemia normal valve. So consumer experience consultant did not recommend any further workup. The patient also found to have hypertriglyceridemia in high cholesterol. Patient was found to have non ST-elevation VA type 2 due to SVT. The patient will be discharged home with aspirin and statin in combination with her home med. Follow up with primary care physician 1-2 weeks. Follow up with consumer experience consultant as outpatient for possible cardiac stress test. Activity as tolerated. Diet per home diet. Recommend low-salt low-cholesterol diet. Physical exam: HEENT: Normocephalic atraumatic pupils equal react to light and accommodation. Extraocular muscles intact, conjunctiva pink, oropharynx moist, no thrush, no exudate. Lymphatic: No lymphadenopathy Cardiovascular exam: S1, S2 was heard. No murmurs, rubs, gallops Lung: Clear on auscultation bilaterally, no wheeze, rale, rhonchi. GI: Abdominal soft, nondistended, nontenderness, positive bowel sounds. Extremity: No crepitus, cyanosis, edema. Pedal pulses present bilateral. Full range of motion. Skin: Normal turgor, no rash. Psych: Alert, oriented x3. Neurology: No focal deficits, cranial nerve II to XII grossly intact. This medical document was created using an electronic medical record system with [employer] direct computerized dictation system. Although this document has been carefully reviewed, there may still be some phonetic and typographical errors. These areas are purely typographical due to imperfections of the software programs, and do not reflect any compromise in the patient's medical care. Condition at Discharge: Stable Final Diagnosis/Problems List NSTEMI likely type 2 Palpitations SVTs History of diabetes History of hypertension Discharge Disposition: Home Discharge Instruct/Medications Diet: Cardiac 2g Na,low cholest Activity: No Restrictions, As Tolerated Follow Up/Referral: pcp 1-2 weeks Medications: resume home meds see med list Scheduled Aspirin (Aspirin Low Dose), 81 MG PO DAILY Atorvastatin Calcium (Lipitor), 1 TAB PO QPM Miscellaneous Medications Metformin Hydrochloride (Metformin Hcl), 1 TAB PO, (Reported) Discharge Statement: "Patient was advised to return to the ER or call 911 if any headaches, dizziness, shortness of breath, chest pain, abdominal pain, bleeding, fevers, or worsening of medical condition. Patient was counseled about treatment plan, medications, possible side effects, patientverbalized understanding. All questions were answered to the best of my ability. This discharge took greater then 30 minutes in planning, reviewing documentation, counseling the patient, and discussing with other team members." ASSESSMENT ASSESSMENT Assessment Date of Service: Jul 25, 2025 Billing Provider: VINNY LOPEZ MD Common Visit Codes: 84148-OIE/OBS DISCH DAY >30min VINNY LOPEZ MD Jul 25, 2025 12:51
[2025-07-25 13:00] VITALS: BP 150/98; PULSE 89; RESP 19; TEMP 98.1; O2SAT 97
--- NOTE | 2025-07-27 13:21 | ECG ---
[facility] Test Date: 2025-07-23 Test Time: 07:26:56 Pat Name: VIVIAN OTT Department: ED Room: [facility]9T A Gender: F Health And Safety Consultant: MICHELLE : 1960 Requested By: RAKAN CHRISTIANSON Order Number: [id number] Reading MD: Moshe Perez Measurements Intervals [place] Rate: 207 P: 232 DC: 67 QRS: -13 QRSD: 76 T: 75 QT: 257 QTc: 477 Interpretive Statements Supraventricular tachycardia Anterior infarct, old ST depression, probably rate related Electronically Signed On 07-30-2025 18:36:31 PDT by Moshe Perez Please click the below link to view image of tracing.
== END 2025-07-25 14:20 | disposition home or self-care (01) | DRG 201 ==
LOC: ER 07:22 → OVERFLOW 12:26 → TELE-WESTW 18:47
PROVIDERS: ADMIT Internal Medicine; ATTEND Internal Medicine
PROC: 5A2204Z Restoration of Cardiac Rhythm, Single (ICD-10-PCS; principal; 2025-07-23)
DX: I47.10 Supraventricular tachycardia, unspecified (principal); I21.A1 Myocardial infarction type 2; I10 Essential (primary) hypertension; F41.9 Anxiety disorder, unspecified; E11.9 Type 2 diabetes mellitus without complications; E78.1 Pure hyperglyceridemia; E78.00 Pure hypercholesterolemia, unspecified; Z90.710 Acquired absence of both cervix and uterus; Z82.49 Family history of ischemic heart disease and other diseases of the circulatory system
CPT/HCPCS: 36415; 71045; 80048; 80061; 80307; 81001; 82010; 82962; 83036; 83735; 84439; 84443; 84484; 85025; 93005; 93306; 96361; 96374; 99291; G0378; J0153; J1815